=== PATIENT | female | born 1970 | race Caucasian/White ===

== ENCOUNTER → 2017-03-14 | Outpatient (CLI) | payer OTHER ==
[~2017-03-14] MED LIST: AZO CRANBERRY450 M1; BACTRIM DS TABL1 TA1 PO; CERTAGEN PO; FISH OIL 1,0001 CAP PO; MACROBID100 M1 PO; MACROBID100 MG PO; PERCOCET PO; PHENERGAN W/CO120 ML PO; PROZAC PO; PYRIDIUM PO; VITAMIN D 4001 UDTAB PO; ZITHROMAX1 G/PKT PO
--- NOTE | ~2017-03-14 | MY29 ---
[facility] A Service of [facility] / [facility] RADIOLOGY TEXT RESULTS PATIENT: CARLYLE FULLER LOCATION: [facility] : 72 UNIT #: [id number] AGE: [address]: Agustina Mead MD SEX: F ORDER DR: [id number] [facility] [address] [place], [place] [address] [id number] MR#: [id number] Acc #: [id number] NAME: CARLYLE FULLER : 1970 SEX: F STUDY DATE/TIME: 03/14/2017 16:52 UNIT: [facility] ROOM: STUDY DESCRIPTION: [facility] SCREENING W/ CAD BILAT Attending Physician: Agustina Mead M.D. Referring Physician: Agustina Mead M.D. Ordering Physician: Agustina Mead M.D. Primary Care Physician: Agustina Mead M.D. MEDICAL IMAGING REPORT This report is preliminary unless electronic signature is present EXAM Bilateral digital screening mammogram with CAD device, 03/14/2017 HISTORY Routine screening FINDINGS Digital imaging of each breast was completed utilizing a two-view examination of each breast in craniocaudal and mediolateral-oblique projections. Review and interpretation of digital mammograms include a second review in conjunction with FDA-approved CAD device. There is a normal parenchymal presentation bilaterally consistent with the patient's age. There are no breast masses imaged and no parenchymal asymmetry is visualized. There are no suspicious microcalcifications and I see no focal architectural disturbance. IMPRESSION Negative screening digital mammogram. One-year followup recommended. Patients over the age of 40 are entered into a reminder system with target due date for the next mammogram. A result letter will also be sent to the patient. BIRADS: 1 Negative Dictated by... Kayden Mitchell M.D. THIS IS AN ELECTRONICALLY VERIFIED REPORT Kayden Mitchell M.D. at 03/15/2017 4:53 PM [facility] A Service of [facility] RADIOLOGY TEXT RESULTS PATIENT: CARLYLE FULLER LOCATION: [facility] : 72 UNIT #: [id number] AGE: [address]: Agustina Mead MD SEX: F ORDER DR: TD: 03/15/2017 10:47 JOB #: [id number] MEDICAL IMAGING REPORT Page 1 of 1 COPY
== END | disposition home or self-care (01) ==
LOC: CWCC 16:32
DX: Z12.31 Encounter for screening mammogram for malignant neoplasm of breast (principal)
CPT/HCPCS: G0202